=== PATIENT | female | born 2000 | race Caucasian/White ===

== ENCOUNTER 2021-02-14 14:09 | Emergency (ER) | payer BC, SELFPAY ==
[2021-02-14] MEDS ORDERED: traMADol HCl 50 MG TAB ONE (14:25)
[2021-02-14] MEDS ORDERED: Ibuprofen 800 MG TAB ONE (14:26)
== END 2021-02-14 14:32 | disposition home or self-care (01) ==
LOC: BURERS 14:09
DX: S29.012A Strain of muscle and tendon of back wall of thorax, initial encounter (principal); X50.1XXA Overexertion from prolonged static or awkward postures, initial encounter; X50.0XXA Overexertion from strenuous movement or load, initial encounter
CPT/HCPCS: 99283